=== PATIENT | female | born 1995 | race Caucasian/White ===

== ENCOUNTER → 2019-02-16 | Outpatient (CLI) | payer OTHER ==
--- NOTE | 2019-02-16 15:31 | US ---
EXAMINATION TYPE: Transabdominal DATE OF EXAM: 02/16/2019 3:07 PM COMPARISON: NONE CLINICAL HISTORY: Z36 confirm dates. confirm dates EXAM PERFORMED: Transabdominal (TA) EXAM MEASUREMENTS: GESTATIONAL AGE / DATING Physician Established: (7 weeks/6 days) EDC: 09/29/2019 Dates by LMP: (7 weeks/6 days) EDC: 09/29/2019 Dates by First Scan: No previous this is first scan Dates by Current Scan for: (7 weeks/4 days) EDC: 10/01/2019 MATERNAL ANATOMY Uterus: 8.4 x 6.2 x 7.1 cm Right Ovary: 3.6 x 1.5 x 1.9 cm Left Ovary: 3.3 x 1.7 x 2.8 cm Post CDS / Adnexa: wnl Presence of free fluid: no Presence of corpus luteal cyst: no Presence of subchorionic bleed: no GESTATION / SURVEY CRL: 1.3 cm (7 weeks/4 days) Yolk Sac (normal less than 6mm): 2mm Heart Rate: 151 bpm Rhythm: Normal IUP: Viable IUP Beta HcG (if available): Not available at this time Single live intrauterine gestation is confirmed as gestational sac, yolk sac, and pole are pres ent. No free fluid in pelvic cul-de-sac. Both ovaries are seen. No suspicious extraovarian adnexal mass. IMPRESSION: Single live intrauterine gestation is confirmed, mean crown-rump length is 1.3 cm corresp onding to 7 week 4 day old fetus
[2019-02-16 16:12] LABS: African American GFR (CKD) >90 (>60 ml/min/1.73 sqM); Glucose 100 mg/dL (74-99); HCT 33.9 % (34.0-46.0); HGB 11.7 gm/dL (11.4-16.0); MCH 32.5 pg (25.0-35.0); MCHC 34.5 g/dL (31.0-37.0); MCV 94.1 fL (80.0-100.0); Mean Platelet Volume 7.3; Platelet Count 196 k/uL (150-450); RDW 12.3 % (11.5-15.5); WBC 8.1 k/uL (3.8-10.6)
[2019-02-16 23:45] LABS: Hepatitis B Surface Antigen Non-Reactive (Non-Reactive)
== END | disposition home or self-care (01) ==
LOC: RADUSWWP 14:47 → MERGE 15:00
PROVIDERS: ATTEND Obstetrics & Gynecology
DX: Z36.9 Encounter for antenatal screening, unspecified (principal); Z34.81 Encounter for supervision of other normal pregnancy, first trimester
CPT/HCPCS: 36415; 76801; 82565; 82947; 85027; 86762; 86780; 86850; 86900; 86901; 87340

== ENCOUNTER 2019-04-07 13:26 | Emergency (ER) | payer OTHER ==
[2019-04-07 13:50] VITALS: RESP 18
[2019-04-07 14:47] LABS: Basophils % (A) 0 %; Eosinophils # (A) 0.1 k/uL (0-0.7); Eosinophils % (A) 1 %; HCT 38.4 % (34.0-46.0); Lymphocytes # (A) 1.5 k/uL (1.0-4.8); Lymphocytes % (A) 13 %; MCH 31.4 pg (25.0-35.0); MCHC 33.8 g/dL (31.0-37.0); MCV 92.8 fL (80.0-100.0); Mean Platelet Volume 9.1; Monocytes # (A) 0.4 k/uL (0-1.0); Monocytes % (A) 4 %; Neutrophils # (A) 9.5 k/uL (1.3-7.7); Neutrophils % (A) 82 %; Platelet Count 198 k/uL (150-450); RBC 4.14 m/uL (3.80-5.40); RDW 12.8 % (11.5-15.5); WBC 11.7 k/uL (3.8-10.6)
--- NOTE | 2019-04-07 14:53 | ED ---
Female Urogenital HPI - General Chief complaint: Urogenital Stated complaint: 15 wks preg, no heart beat on us Time Seen by Provider: 04/07/19 13:53 Source: patient, RN notes reviewed, old records reviewed Mode of arrival: ambulatory Limitations: no limitations - History of Present Illness Initial comments: This Patient is a 23-year-old female, female. She states she is 15 weeks . She follows up with Dr. Ventura. At this time Patient states that she's had an ultrasound today did identify the baby's gender. Patient reports at that time the ultrasound showed no viable heart rate. She states she has not felt the baby move in the past 2 days. She states that she has had no vaginal bleeding or fluid loss. She does report some minor pelvic cramping. - Related Data Home Medications Medication Instructions Recorded Confirmed Ciprofloxacin HCl [Cipro] 500 mg PO Q12HR 08/16/14 08/16/14 Nkzxoddi-Qxwiebhrt-Ud Otic 4 drops RIGHT EAR QID 08/16/14 08/16/14 [Cortisporin Otic Soln] Pnv No.95/Ferrous Fum/Folic AC 1 each PO DAILY 01/05/18 01/05/18 [ Multivitamin Tablet] Allergies Allergy/AdvReac Type Severity Reaction Status Date / Time No Known Allergies Allergy Verified 04/07/19 13:50 Review of Systems ROS Statement: Those systems with pertinent positive or pertinent negative responses have been documented in the HPI. ROS Other: All systems not noted in ROS Statement are negative. Past Medical History Past Medical History: No Reported History History of Any Multi-Drug Resistant Organisms: None Reported Past Surgical History: No Surgical Hx Reported Additional Past Surgical History / Comment(s): [place] Teeth Extraction Past Anesthesia/Blood Transfusion Reactions: No Reported Reaction Past Psychological History: No Psychological Hx Reported Smoking Status: Never smoker Past Alcohol Use History: None Reported Past Drug Use History: None Reported - Past Family History Mother Family Medical History: Thyroid Disorder Additional Family Medical History / Comment(s): Hypothyroid Father Family Medical History: Diabetes Mellitus Additional Family Medical History / Comment(s): Type 1 Diabetes General Exam - General Exam Comments Initial Comments: 23-year-old female. Alert and oriented 3. Limitations: no limitations General appearance: alert, in no apparent distress Head exam: Present: atraumatic, normocephalic, normal inspection Eye exam: Present: normal appearance, PERRL, EOMI. Absent: scleral icterus, conjunctival injection, periorbital swelling ENT exam: Present: normal exam, mucous membranes moist Neck exam: Present: normal inspection Respiratory exam: Present: normal lung sounds bilaterally. Absent: respiratory distress, wheezes, rales, rhonchi, stridor Cardiovascular Exam: Present: regular rate, normal rhythm, normal heart sounds. Absent: systolic murmur, diastolic murmur, rubs, gallop, clicks GI/Abdominal exam: Present: soft, normal bowel sounds. Absent: distended, t enderness, guarding, rebound, rigid External exam: Present: other (patient declined pelvic exam ) Extremities exam: Present: normal inspection, full ROM, normal capillary refill. Absent: tenderness, pedal edema, joint swelling, calf tenderness Back exam: Present: normal inspection Neurological exam: Present: alert, oriented X3, CN II-XII intact Psychiatric exam: Present: normal affect, normal mood Skin exam: Present: warm, dry, intact, normal color. Absent: rash Course Vital Signs 04/07/19 13:47 Temperature 98.4 F Pulse Rate 107 H Respiratory 18 Rate Blood Pressure 115/79 O2 Sat by Pulse 99 Oximetry Medical Decision Making - Medical Decision Making 23-year-old female, . Approximately 15 weeks based off of last menstrual. She presents today after having an abnormal outpatient ultrasound for a general reveal. She is looking here after there is no heart tones detected. Repeat ultrasound today shows no viable intrauterine , no heart rate detected. growth and soup sounds at 13 weeks and 2 days. There is concern for hydroxy talus. She denies any vaginal bleeding or discharge. Vital signs are stable and afebrile. Blood work was unremarkable. She is Rh+. I discussed the case with Dr. Ventura patient's SOFTWARE DEVELOPMENT COORDINATOR. Recommended the Patient can follow-up with her in the office at 9 AM on Tuesday morning to schedule an induction for delivery. I discussed the Patient can return if there is any bleeding or further pain. Discussed Motrin or Tylenol for pain. - Lab Data Result diagrams: 04/07/19 14:35 04/07/19 14:35 Lab Results 04/07/19 04/07/19 04/07/19 Range/Units 14:35 14:35 14:35 WBC 11.7 H (3.8-10.6) k/uL RBC 4.14 (3.80-5.40) m/uL Hgb 13.0 (11.4-16.0) gm/dL Hct 38.4 (34.0-46.0) % MCV 92.8 (80.0-100.0) fL MCH 31.4 (25.0-35.0) pg MCHC 33.8 (31.0-37.0) g/dL RDW 12.8 (11.5-15.5) % Plt Count 198 (150-450) k/uL Neutrophils % 82 % Lymphocytes % 13 % Monocytes % 4 % Eosinophils % 1 % Basophils % 0 % Neutrophils # 9.5 H (1.3-7.7) k/uL Lymphocytes # 1.5 (1.0-4.8) k/uL Monocytes # 0.4 (0-1.0) k/uL Eosinophils # 0.1 (0-0.7) k/uL Basophils # 0.0 (0-0.2) k/uL PT (9.0-12.0) sec INR (<1.2) Sodium 138 (137-145) mmol/L Potassium 3.7 (3.5-5.1) mmol/L Chloride 104 (98-107) mmol/L Carbon Dioxide 20 L (22-30) mmol/L Anion Gap 14 mmol/L BUN 12 (7-17) mg/dL Creatinine 0.55 (0.52-1.04) mg/dL Est GFR (CKD-EPI)AfAm >90 (>60 ml/min/1.73 sqM) Est GFR (CKD-EPI)NonAf >90 (>60 ml/min/1.73 sqM) Glucose 85 (74-99) mg/dL Calcium 9.8 (8.4-10.2) mg/dL Total Bilirubin 1.5 H (0.2-1.3) mg/dL AST 25 (14-36) U/L ALT 14 (4-34) U/L Alkaline Phosphatase 51 (38-126) U/L Total Protein 8.0 (6.3-8.2) g/dL Albumin 4.8 (3.5-5.0) g/dL Blood Type A Positive Blood Type Recheck A Pos Bld Type Recheck Status No 04/07/19 Range/Units 14:35 WBC (3.8-10.6) k/uL RBC (3.80-5.40) m/uL Hgb (11.4-16.0) gm/dL Hct (34.0-46.0) % MCV (80.0-100.0) fL MCH (25.0-35.0) pg MCHC (31.0-37.0) g/dL RDW (11.5-15.5) % Plt Count (150-450) k/uL Neutrophils % % Lymphocytes % % Monocytes % % Eosinophils % % Basophils % % Neutrophils # (1.3-7.7) k/uL Lymphocytes # (1.0-4.8) k/uL Monocytes # (0-1.0) k/uL Eosinophils # (0-0.7) k/uL Basophils # (0-0.2) k/uL PT 9.9 (9.0-12.0) sec INR 0.9 (<1.2) Sodium (137-145) mmol/L Potassium (3.5-5.1) mmol/L Chloride (98-107) mmol/L Carbon Dioxide (22-30) mmol/L Anion Gap mmol/L BUN (7-17) mg/dL Creatinine (0.52-1.04) mg/dL Est GFR (CKD-EPI)AfAm (>60 ml/min/1.73 sqM) Est GFR (CKD-EPI)NonAf (>60 ml/min/1.73 sqM) Glucose (74-99) mg/dL Calcium (8.4-10.2) mg/dL Total Bilirubin (0.2-1.3) mg/dL AST (14-36) U/L ALT (4-34) U/L Alkaline Phosphatase (38-126) U/L Total Protein (6.3-8.2) g/dL Albumin (3.5-5.0) g/dL Blood Type Blood Type Recheck Bld Type Recheck Status - Radiology Data Radiology results: report reviewed There is intrauterine demise at approximately 13 weeks and 2 days according to femur length. No heart rate was detected. Disposition Clinical Impression: Non-viable Disposition: HOME SELF-CARE Condition: Good Instructions (If sedation given, give patient instructions): Miscarriage (ED) Additional Instructions: Is follow-up with Dr. Ventura on Tuesday morning at 9 AM. There is any bleeding or significant pain return to the ER. Patient should have pelvic rest. No intercourse or heavy lifting. Rest, remain hydrated. Is patient prescribed a controlled substance at d/c from ED?: No Referrals: None,Stated [Primary Care Provider] - 1-2 days Zena Ventura DO [Doctor of Osteopathic Medicine] - 1-2 days Time of Disposition: 16:58
[2019-04-07 14:55] LABS: INR 0.9 (<1.2); Prothrombin Time 9.9 sec (9.0-12.0)
[2019-04-07 14:58] LABS: ALT 14 U/L (4-34); AST 25 U/L (14-36); African American GFR (CKD) >90 (>60 ml/min/1.73 sqM); Albumin 4.8 g/dL (3.5-5.0); Alkaline Phosphatase 51 U/L (38-126); Anion Gap 14 mmol/L; Blood Urea Nitrogen 12 mg/dL (7-17); Calcium 9.8 mg/dL (8.4-10.2); Carbon Dioxide 20 mmol/L (22-30); Chloride 104 mmol/L (98-107); Glucose 85 mg/dL (74-99); Non-African American GFR(CKD) >90 (>60 ml/min/1.73 sqM); Potassium 3.7 mmol/L (3.5-5.1); Sodium 138 mmol/L (137-145); Total Bilirubin 1.5 mg/dL (0.2-1.3)
--- NOTE | 2019-04-07 16:12 | US ---
EXAMINATION TYPE: US OB >= 14 wk fetus DATE OF EXAM: 04/07/2019 COMPARISON: US CLINICAL HISTORY: no heart tones outpatient us, pain. EC patient with pelvic pain today and abs ent heart tones today on outpatient gender reveal US per patient. TECHNIQUE: Transabdominal (TA) GESTATIONAL AGE / DATING Physician Established: (15 weeks/0 days) EDC: 09/29/2019 Dates by LMP: (15 weeks/0 days) EDC: 09/29/2019 Dates by First Scan: (14 weeks/5 days) EDC: 10/01/2019 Dates by Current Scan: non viable IUP (Beta HCG (if available): NA SURVEY IUP: single PLACENTA: posterior PREVIA: No Previa LEN: 10.2 cm Normal CERVICAL LENGTH (transabdominal: norm > 3.0cm): 3.03 cm BIOMETRY PRESENTATION: cephalic LIE: Transverse with head maternal right BPD: 2.5 cm (abnormal multicystic appearance to posterior head and neck and fluid noted in head and a bdominal cavities) 14 weeks / 2 days HC: 8.1 cm 13 weeks / 4 days AC: 9.8 cm 15 weeks / 6 days FL: 1.1 cm 13 weeks / 2 days ESTIMATED WEIGHT IN GRAMS: 98.3 grams ESTIMATED WEIGHT IN LBS/OZ: 0 lbs. 3 oz. WEIGHT PERCENTAGE BASED ON ESTABLISHED DATES: 10.5% HC/AC: 0.83 Abnormal FL/AC: 11.45 HEART RATE: none detected Nonviable IUP with possible cystic hygroma and hydrops. IMPRESSION: There is intrauterine demise at approximately 13 weeks and 2 days gestation according to the fe mur length.
[2019-04-07 17:14] VITALS: BP 125/82; PULSE 86; TEMP 98.9
== END 2019-04-07 17:12 | disposition home or self-care (01) ==
LOC: EC 13:26
DX: O36.80X0 Pregnancy with inconclusive fetal viability, not applicable or unspecified (principal); Z3A.15 15 weeks gestation of pregnancy
CPT/HCPCS: 36415; 76805; 80053; 81025; 85025; 85610; 86900; 86901; 99284

== ENCOUNTER 2019-04-10 05:54 | Inpatient (IN) | payer OTHER ==
[2019-04-10] MEDS ORDERED: ONDANSETRON 4 MG/2 ML VIAL IVP PRN (06:10)
[2019-04-10] MEDS ORDERED: ACETAMINOPHEN TAB 325 MG TAB PO PRN (06:10)
[2019-04-10] MEDS ORDERED: DIPHENOX-ATROP 2.5-0.025 MG 1 EACH TAB PO PRN (06:10)
[2019-04-10] MEDS ORDERED: LACTATED RINGERS 1,000 ML IV SCH (06:15)
[2019-04-10 06:49] LABS: Basophils % (A) 0 %; Eosinophils # (A) 0.1 k/uL (0-0.7); Eosinophils % (A) 1 %; HCT 35.7 % (34.0-46.0); HGB 11.9 gm/dL (11.4-16.0); Lymphocytes # (A) 1.3 k/uL (1.0-4.8); Lymphocytes % (A) 17 %; MCH 31.4 pg (25.0-35.0); MCHC 33.3 g/dL (31.0-37.0); MCV 94.5 fL (80.0-100.0); Mean Platelet Volume 8.8; Monocytes # (A) 0.3 k/uL (0-1.0); Monocytes % (A) 4 %; Neutrophils # (A) 5.9 k/uL (1.3-7.7); Neutrophils % (A) 76 %; Platelet Count 166 k/uL (150-450); RBC 3.78 m/uL (3.80-5.40); RDW 12.9 % (11.5-15.5); WBC 7.8 k/uL (3.8-10.6)
[2019-04-10] MEDS: CARBOPROST TROMETHAMINE 250 MCG/ML 1 ML AMP IM SCH ×2 (08:02→10:49)
[2019-04-10] MEDS ORDERED: KETOROLAC 30 MG/ML 1 ML VIAL IVP SCH (09:00)
[2019-04-10] MEDS ORDERED: BUTORPHANOL 1 MG/ML 1 ML VIAL IV PRN (12:16)
[2019-04-10] MEDS ORDERED: SIMETHICONE 80 MG CHEWABLE PO PRN (12:36)
[2019-04-10] MEDS ORDERED: HYDROCORTISONE 2.5% RECTAL CREAM 30 GM TUBE RECTAL PRN (12:36)
[2019-04-10] MEDS ORDERED: IBUPROFEN 600 MG TAB PO PRN (12:36)
[2019-04-10] MEDS ORDERED: ZOLPIDEM 5 MG TAB PO PRN (12:36)
[2019-04-10] MEDS ORDERED: diphenhydrAMINE 25 MG CAP PO PRN (12:36)
[2019-04-10] MEDS ORDERED: BENZOCAINE/MENTHOL SPRAY 1 GM/SPRAY AEROSOL TOPICAL PRN (12:36)
[2019-04-10] MEDS ORDERED: WITCH HAZEL 1 EACH MED..PAD TOPICAL PRN (12:36)
[2019-04-10] MEDS ORDERED: diphenhydrAMINE 50 MG CAP PO PRN (12:36)
[2019-04-10] MEDS ORDERED: diphenhydrAMINE 50 MG/ML 1 ML VIAL IVP PRN ×2 (12:36)
--- NOTE | 2019-04-10 12:41 | P.HPOB ---
History of Present Illness H&P Date: 04/10/19 Chief Complaint: demise, 13weeks 5 days 23-year-old presents for induction of labor due to demise at 13 weeks and 5 days. This patient went to another outpatient facility for an ultrasound and was told the baby did not have a heart rate. She came here for ultrasound which showed a cystic hygroma, hydrops, and no heart rate. She was in my office yesterday afternoon for laminaria insertion and presents today for induction of labor. Review of Systems All systems: negative Constitutional: Denies chills, Denies fever Eyes: denies blurred vision, denies pain Ears, nose, mouth and throat: Denies headache, Denies sore throat Cardiovascular: Denies chest pain, Denies shortness of breath Respiratory: Denies cough Gastrointestinal: Denies abdominal pain, Denies diarrhea, Denies nausea, Denies vomiting Genitourinary: Denies dysuria, Denies hematuria Musculoskeletal: Denies myalgias Integumentary: Denies pruritus, Denies rash Neurological: Denies numbness, Denies weakness Psychiatric: Denies anxiety, Denies depression Endocrine: Denies fatigue, Denies weight change Past Medical History Past Medical History: No Reported History Additional Past Medical History / Comment(s): Obstetric history: She's had 2 previous vaginal deliveries History of Any Multi-Drug Resistant Organisms: None Reported Past Surgical History: No Surgical Hx Reported Additional Past Surgical History / Comment(s): [place] Teeth Extraction Past Anesthesia/Blood Transfusion Reactions: No Reported Reaction Past Psychological History: No Psychological Hx Reported Smoking Status: Never smoker Past Alcohol Use History: None Reported Past Drug Use History: None Reported - Past Family History Mother Family Medical History: Thyroid Disorder Additional Family Medical History / Comment(s): Hypothyroid Father Family Medical History: Diabetes Mellitus Additional Family Medical History / Comment(s): Type 1 Diabetes Medications and Allergies Home Medications Medication Instructions Recorded Confirmed Type Pnv No.95/Ferrous Fum/Folic AC 1 tab PO DAILY 01/05/18 04/10/19 History [ Multivitamin Tablet] Allergies Allergy/AdvReac Type Severity Reaction Status Date / Time No Known Allergies Allergy Verified 04/10/19 06:07 Exam Osteopathic Statement: *. No significant issues noted on an osteopathic structural exam other than those noted in the History and Physical/Consult. Vital Signs Temp Pulse Resp BP Pulse Ox 04/10/19 06:05 98.6 F 102 H 20 117/75 100 Intake and Output 04/09/19 04/10/19 04/10/19 22:59 06:59 14:59 Other: # Voids 1 Weight 51.256 kg Heart: Regular rate and rhythm Lungs: Clear to auscultation bilaterally Abdomen: Soft, nontender Extremities: Negative Homans sign Bimanual exam: The laminaria were removed and the patient was 1 cm, thick, -3 station. Results Result Diagrams: 04/10/19 06:30 Abnormal Lab Results - Last 24 Hours (Table) 04/10/19 Range/Units 06:30 RBC 3.78 L (3.80-5.40) m/uL Assessment and Plan (1) before 20 weeks with retention of fetus Current Visit: Yes Status: Acute Code(s): O02.1 - MISSED SNOMED Code(s): 599488547 Plan: Induction of labor with Hemabate. All risks and benefits alternatives were discussed with the patient.
--- NOTE | 2019-04-10 12:43 | P.PROBDLV ---
Vaginal Delivery Note - . Vaginal Delivery Note: 23-year-old presented for induction of labor due to demise at 13 weeks and 5 days. Laminaria had been inserted and the cervix the day prior so when she presented to the hospital she was 1 cm dilated, thick, -3 station. She was preloaded with Tylenol, Lomotil, Zofran. She was then given a shot of Hemabate. Within an hour of giving the Hemabate the patient did deliver a nonviable fetus. The placenta remained in the uterus. About 4 hours later, she started with some heavy bleeding and pushed the placenta right out. She is currently stable, estimated blood loss 350 mL.
[2019-04-10 13:44] VITALS: RESP 16
[2019-04-10 15:40] VITALS: BP 103/64; PULSE 104; TEMP 98
[2019-04-10] MEDS ORDERED: SENNOSIDES-DOCUSATE SODIUM 1 EACH TAB PO SCH (20:00)
== END 2019-04-10 15:35 | disposition home or self-care (01) | DRG 807 ==
LOC: 4FBP 05:54
PROVIDERS: ADMIT Obstetrics & Gynecology; ATTEND Obstetrics & Gynecology
PROC: 10E0XZZ Delivery of Products of Conception, External Approach (ICD-10-PCS; principal; 2019-04-10)
PROC: 3E0P7VZ Introduction of Hormone into Female Reproductive, Via Natural or Artificial Opening (ICD-10-PCS; 2019-04-10)
DX: O36.21 Maternal care for hydrops fetalis, first trimester (principal); Z37.1 Single stillbirth; O35.8XX0 Maternal care for other (suspected) fetal abnormality and damage, not applicable or unspecified; Z3A.13 13 weeks gestation of pregnancy; D18.1 Lymphangioma, any site; Z79.899 Other long term (current) drug therapy; Z98.890 Other specified postprocedural states; Z83.49 Family history of other endocrine, nutritional and metabolic diseases; Z83.3 Family history of diabetes mellitus
CPT/HCPCS: 85025; 86850; 86900; 86901

== ENCOUNTER 2019-06-22 23:03 | Emergency (ER) | payer BC, OTHER ==
[2019-06-22 23:15] VITALS: RESP 16
[2019-06-22] MEDS ORDERED: SODIUM CHLORIDE 0.9% 1,000 ML IV ONE (23:33)
[2019-06-22] MEDS ORDERED: KETOROLAC 30 MG/ML 1 ML VIAL IVP STA (23:33)
[2019-06-22] MEDS ORDERED: MORPHINE SULFATE 2 MG/ML SYRINGE IVP STA (23:33)
[2019-06-23 00:08] LABS: Basophils % (A) 1 %; Eosinophils # (A) 0.1 k/uL (0-0.7); Eosinophils % (A) 1 %; HCT 35.6 % (34.0-46.0); HGB 11.2 gm/dL (11.4-16.0); Lymphocytes # (A) 1.7 k/uL (1.0-4.8); Lymphocytes % (A) 21 %; MCH 27.7 pg (25.0-35.0); MCHC 31.6 g/dL (31.0-37.0); MCV 87.7 fL (80.0-100.0); Mean Platelet Volume 8.9; Monocytes # (A) 0.6 k/uL (0-1.0); Monocytes % (A) 7 %; Neutrophils # (A) 5.6 k/uL (1.3-7.7); Neutrophils % (A) 69 %; Platelet Count 237 k/uL (150-450); RBC 4.05 m/uL (3.80-5.40); RDW 13.6 % (11.5-15.5); WBC 8.2 k/uL (3.8-10.6)
[2019-06-23 00:17] LABS: Partial Thromboplastin Time 22.6 sec (22.0-30.0); Prothrombin Time 10.3 sec (9.0-12.0)
[2019-06-23 00:18] LABS: ALT 14 U/L (4-34); AST 23 U/L (14-36); African American GFR (CKD) >90 (>60 ml/min/1.73 sqM); Albumin 4.7 g/dL (3.5-5.0); Alkaline Phosphatase 42 U/L (38-126); Anion Gap 10 mmol/L; Blood Urea Nitrogen 13 mg/dL (7-17); Calcium 9.6 mg/dL (8.4-10.2); Carbon Dioxide 27 mmol/L (22-30); Chloride 101 mmol/L (98-107); Glucose 106 mg/dL (74-99); Non-African American GFR(CKD) >90 (>60 ml/min/1.73 sqM); Potassium 3.8 mmol/L (3.5-5.1); Sodium 138 mmol/L (137-145); Total Bilirubin 0.6 mg/dL (0.2-1.3); Total Protein 7.8 g/dL (6.3-8.2)
[2019-06-23 00:35] LABS: HCG,Quantitative Serum <2.4 mIU/mL
--- NOTE | 2019-06-23 00:36 | US ---
EXAMINATION TYPE: US transvaginal DATE OF EXAM: 06/23/2019 COMPARISON: Previous OB only CLINICAL HISTORY: Vaginal bleeding/pain; Spont 10 weeks ago. Pt states vaginal bleeding x 10 weeks since having miscarriage, bleeding recently heavier with pain TECHNIQUE: Transvaginal (TV). Transvaginal sonographic images of the pelvis were acquired. EXAM MEASUREMENTS: Uterus: 9.3 x 4.4 x 5.5 cm Endometrial Stripe: 0.7 cm Right Ovary: 3.4 x 2.5 x 3.1 cm Left Ovary: 3.0 x 2.2 x 2.6 cm 1. Uterus: Anteverted Heterogeneous 2. Endometrium: Slightly heterogeneous, not abnormally thickened 3. Right Ovary: Cyst= 2.7 x 2.0 x 2.3 cm 4. Left Ovary: wnl Spectral, color and waveform doppler imaging shows good arterial and venous flow within the ovaries ; there is no evidence for ovarian torsion. 5. Bilateral Adnexa: wnl 6. Posterior cul-de-sac: wnl IMPRESSION: There is 2.5 cm cyst on the right ovary. Normal uterus. No evidence of ovarian torsion. N o free fluid.
--- NOTE | 2019-06-23 00:46 | ED ---
General Adult HPI - General Chief complaint: Vaginal Bleeding Stated complaint: Vaginal Bleeding Time Seen by Provider: 06/22/19 23:18 Source: patient Mode of arrival: ambulatory Limitations: no limitations - History of Present Illness Initial comments: 23-year-old female patient presents to the emergency department today for evaluation of heavy vaginal bleeding and suprapubic cramping. Patient states that she had a missed approximately 10 weeks ago and had to be induced by Dr. Ventura. Patient states today did deliver the fetus and placenta intact. States that she has had some mild bleeding since the procedure however approximately one hour ago she developed heavier bleeding, passage of large clots, and increased pain to the lower abdomen. Denies any back pain. Denies any dizziness or weakness. Denies any dysuria, urinary urgency, urinary frequency. Patient states she has not been sexually active since the miscarriage. Patient denies any recent rash, fever, chills, shortness breath, chest pain, nausea, vomiting, diarrhea, constipation, numbness, tingling, headache, visual changes, or any other complaints. - Related Data Home Medications Medication Instructions Recorded Confirmed Pnv No.95/Ferrous Fum/Folic AC 1 tab PO DAILY 01/05/18 04/10/19 [ Multivitamin Tablet] Previous Rx's Medication Instructions Recorded Ibuprofen [Motrin] 600 mg PO Q6HR PRN #30 tab 04/10/19 Allergies Allergy/AdvReac Type Severity Reaction Status Date / Time No Known Allergies Allergy Verified 06/22/19 23:15 Review of Systems ROS Statement: Those systems with pertinent positive or pertinent negative responses have been documented in the HPI. ROS Other: All systems not noted in ROS Statement are negative. Past Medical History Past Medical History: No Reported History Additional Past Medical History / Comment(s): Obstetric history: She's had 2 previous vaginal deliveries History of Any Multi-Drug Resistant Organisms: None Reported Past Surgical History: No Surgical Hx Reported Additional Past Surgical History / Comment(s): [place] Teeth Extraction Past Anesthesia/Blood Transfusion Reactions: No Reported Reaction Past Psychological History: No Psychological Hx Reported Smoking Status: Never smoker Past Alcohol Use History: None Reported Past Drug Use History: None Reported - Past Family History Mother Family Medical History: Thyroid Disorder Additional Family Medical History / Comment(s): Hypothyroid Father Family Medical History: Diabetes Mellitus Additional Family Medical History / Comment(s): Type 1 Diabetes General Exam Limitations: no limitations General appearance: alert, in no apparent distress, other (This is a well- developed, well-nourished adult female patient in no acute distress. Vital signs upon presentation are temperature 98.1F, pulse 100, respirations 16, blood pressure 147/80, pulse ox 100% on room air.) Eye exam: Present: normal appearance, PERRL, EOMI. Absent: scleral icterus, conjunctival injection, periorbital swelling ENT exam: Present: normal exam, normal oropharynx, mucous membranes moist Respiratory exam: Present: normal lung sounds bilaterally. Absent: respiratory distress, wheezes, rales, rhonchi, stridor Cardiovascular Exam: Present: regular rate, normal rhythm, normal heart sounds. Absent: systolic murmur, diastolic murmur, rubs, gallop, clicks GI/Abdominal exam: Present: soft, tenderness (mild suprapubic), normal bowel sounds. Absent: distended, guarding, rebound, rigid External exam: Present: normal external exam Speculum exam: Present: vaginal bleeding (Moderate vaginal bleeding, one clot was removed from the vaginal vault, approximately 2 cm x 4 cm. Cervix is closed.). Absent: tissue By manual exam: Present: normal by manual exam Neurological exam: Present: alert, oriented X3, CN II-XII intact Psychiatric exam: Present: normal affect, normal mood Skin exam: Present: warm, dry, intact, normal color. Absent: rash Course Vital Signs 06/22/19 06/23/19 23:11 00:51 Temperature 98.1 F 98 F Pulse Rate 100 95 Respiratory 16 16 Rate Blood Pressure 147/80 130/79 O2 Sat by Pulse 100 100 Oximetry Medical Decision Making - Medical Decision Making 23-year-old female patient presents to the emergency department today for evaluation of stable. Pain and heavy vaginal bleeding. Physical examination reveals a mildly tender suprapubic region. Vaginal exam reveals one large blood clot with moderate dark red bleeding. Cervix is closed. Labs reviewed and are unremarkable. HCG is negative. Ultrasound was obtained and shows a normal uterus with a small right ovarian cyst. I did discuss findings and results with the patient. We did discuss that this could possibly be her first period since the miscarriage. She'll be discharged pop with STRAIGHTENING PRESS OPERATOR HELPER Dr. Ventura for recheck as soon as possible. She is instructed to follow-up with her primary care physician for recheck in 1-2 days. Return parameters were discussed in detail. She verbalizes understanding and agrees with this plan. - Lab Data Result diagrams: 06/22/19 23:56 06/22/19 23:56 Lab Results 06/22/19 06/22/19 06/22/19 Range/Units 23:56 23:56 23:56 WBC 8.2 (3.8-10.6) k/uL RBC 4.05 (3.80-5.40) m/uL Hgb 11.2 L (11.4-16.0) gm/dL Hct 35.6 (34.0-46.0) % MCV 87.7 (80.0-100.0) fL MCH 27.7 (25.0-35.0) pg MCHC 31.6 (31.0-37.0) g/dL RDW 13.6 (11.5-15.5) % Plt Count 237 (150-450) k/uL Neutrophils % 69 % Lymphocytes % 21 % Monocytes % 7 % Eosinophils % 1 % Basophils % 1 % Neutrophils # 5.6 (1.3-7.7) k/uL Lymphocytes # 1.7 (1.0-4.8) k/uL Monocytes # 0.6 (0-1.0) k/uL Eosinophils # 0.1 (0-0.7) k/uL Basophils # 0.0 (0-0.2) k/uL PT 10.3 (9.0-12.0) sec INR 1.0 (<1.2) APTT 22.6 (22.0-30.0) sec Sodium 138 (137-145) mmol/L Potassium 3.8 (3.5-5.1) mmol/L Chloride 101 (98-107) mmol/L Carbon Dioxide 27 (22-30) mmol/L Anion Gap 10 mmol/L BUN 13 (7-17) mg/dL Creatinine 0.85 (0.52-1.04) mg/dL Est GFR (CKD-EPI)AfAm >90 (>60 ml/min/1.73 sqM) Est GFR (CKD-EPI)NonAf >90 (>60 ml/min/1.73 sqM) Glucose 106 H (74-99) mg/dL Calcium 9.6 (8.4-10.2) mg/dL Total Bilirubin 0.6 (0.2-1.3) mg/dL AST 23 (14-36) U/L ALT 14 (4-34) U/L Alkaline Phosphatase 42 (38-126) U/L Total Protein 7.8 (6.3-8.2) g/dL Albumin 4.7 (3.5-5.0) g/dL HCG, Quant <2.4 mIU/mL - Radiology Data Radiology results: report reviewed Ultrasound of the pelvis is obtained. Report was reviewed in its entirety. Impression by Dr. Foley shows 2.5cm cyst on the right ovary. Normal uterus. No evidence of ovarian torsion. No free fluid. Disposition Clinical Impression: Pelvic pain, Dysfunctional uterine bleeding Disposition: HOME SELF-CARE Condition: Good Instructions (If sedation given, give patient instructions): Dysfunctional Uterine Bleeding (ED), Pelvic Pain in Women (ED) Additional Instructions: Increase fluids. Rest. Take Tylenol Motrin for pain control. Follow-up with your STRAIGHTENING PRESS OPERATOR HELPER for recheck as soon as possible. Follow up to primary care physician for recheck in 1-2 days. Return to the emergency department immediately for any new, worsening, or concerning symptoms. Is patient prescribed a controlled substance at d/c from ED?: No Referrals: Zena Ventura DO [Doctor of Osteopathic Medicine] - 1-2 days Time of Disposition: 00:46
[2019-06-23 00:52] VITALS: BP 130/79; PULSE 95; TEMP 98
== END 2019-06-23 00:51 | disposition home or self-care (01) ==
LOC: EC 23:03
DX: N93.8 Other specified abnormal uterine and vaginal bleeding (principal); R10.2 Pelvic and perineal pain; N83.201 Unspecified ovarian cyst, right side; Z32.02 Encounter for pregnancy test, result negative
CPT/HCPCS: 36415; 80053; 85025; 85610; 85730; 84702; 93975; 76830; 99284; 96374; 96375; 96361; J1885; J2270

== ENCOUNTER 2022-08-22 11:12 | Outpatient (CLI) | payer OTHER ==
[2022-08-22 13:03] VITALS: BP 121/81; PULSE 87; RESP 16; TEMP 99.2
--- NOTE | 2022-09-07 14:05 | P.MSEPDOC ---
Presenting Problems - Arrival Data Date of Arrival on Unit: 08/22/22 Time of Arrival on Unit: 11:12 Mode of Transport: Ambulatory - Complaint OB-Reason for Admission/Chief Complaint: Possible Onset of Labor Medical History - Information : 3 Para: 2 Number of Living Children: 2 - Gestational Age Gestational Age by KAMILA (wks/days): 38 Weeks and 1 Days - History Complications: GBS+ Review of Systems - Review of Systems Constitutional: No problems Breast: No problems ENT: No problems Cardiovascular: No problems Respiratory: No problems Gastrointestinal: No problems Genitourinary: No problems Musculoskeletal: No problems Neurological: No problems Skin: No problems Vital Signs - Temperature Temperature: 99.2 F Temperature Source: Temporal Artery Scan - Pulse Right Sitting Apical Pulse Rate: 87 Pulse Assessment Method: Automatic Cuff - Respirations Respiratory Rate: 16 Oxygen Delivery Method: Room Air O2 Sat by Pulse Oximetry: 100 - Blood Pressure Right Arm Sitting Blood Pressure: 121/81 Blood Pressure Mean: 94 Blood Pressure Source: Automatic Cuff Medical Screen Scoring - Cervical Exam Dilation (cm): 2 Effacement (%): 60 Station: -3 Membranes: Intact - Uterine Contractions Frequency From (mins): 2 Frequency To (mins): 3 Duration From (seconds): 20 Duration To (seconds): 60 Intensity: Mild Resting: Soft to palpation - Assessment - Baby A Baseline FHR: 130 Heart Rate - NICHD Category: Category I (Normal) NST: Reactive Physician Notification - Physician Notified Physician Notified Date: 08/22/22 Physician Notified Time: 12:44 Physician: Shasha Osorio Maternal Triage Index - Maternal Triage Index Presenting for scheduled procedure w/no complaint: No - Stat/Priority 1 Stat Priority 1: No - Urgent/Priority 2 Urgent Priority 2: No - Prompt/Priority 3 Prompt Priority 3: No - Non-Urgent/Priority 4 Non-Urgent Priority 4: Yes Criteria Met for Priority 4: 38 weeks GA, contractions Disposition - Disposition OB Disposition: Discharge to home Discharge Date: 08/22/22 Discharge Time: 11:51 I agree with the RN Medical Screening Exam: Yes Physician's MSE Comment: I have neither seen nor examined the patient Case reviewed; plan agreed upon as documented in EMR&OBIX.: Yes Diagnosis: RELATED CONDITIONS, UNSPECIFIED, THIRD TRIMESTER
== END 2022-08-22 11:50 | disposition home or self-care (01) ==
LOC: FBPOP 11:12
PROVIDERS: ATTEND Obstetrics & Gynecology
DX: O26.893 Other specified pregnancy related conditions, third trimester (principal); O98.82 Other maternal infectious and parasitic diseases complicating childbirth; Z3A.38 38 weeks gestation of pregnancy; Z79.82 Long term (current) use of aspirin
CPT/HCPCS: 59025; G0463; 99213

== ENCOUNTER 2022-09-02 06:06 | Inpatient (IN) | payer BC, OTHER ==
[2022-09-02] MEDS ORDERED: CARBOPROST TROMETHAMINE 250 MCG/ML 1 ML AMP IM PRN (06:24)
[2022-09-02] MEDS ORDERED: PENICILLIN G POTASSIUM 5,000,000 UNIT in DEXTROSE 5% IN WATER 100 ML IVPB STA ×2 (06:24)
[2022-09-02] MEDS ORDERED: OXYTOCIN 10 UNIT/ML 1 ML VIAL IM PRN (06:24)
[2022-09-02] MEDS ORDERED: TRANEXAMIC ACID IN NACL,ISO-OS 1,000 MG in EMPTY BAG 1 BAG IV PRN (06:24)
[2022-09-02] MEDS ORDERED: miSOPROStoL 200 MCG TAB PO PRN (06:24)
[2022-09-02] MEDS ORDERED: METHYLERGONOVINE 0.2 MG/ML 1 ML AMP IM PRN (06:24)
[2022-09-02] MEDS ORDERED: TERBUTALINE 1 MG/ML VIAL SQ PRN (06:24)
[2022-09-02] MEDS ORDERED: LIDOCAINE 0.5% (PF) 5 MG/ML (50 ML SDV) SQ PRN (06:24)
[2022-09-02] MEDS ORDERED: LACTATED RINGERS 1,000 ML IV SCH (06:30)
[2022-09-02 06:35] LABS: Basophils % (A) 0 %; Eosinophils # (A) 0.1 k/uL (0-0.7); Eosinophils % (A) 1 %; HCT 31.6 % (34.0-46.0); HGB 10.2 gm/dL (11.4-16.0); Hypochromasia Slight; Lymphocytes # (A) 1.7 k/uL (1.0-4.8); Lymphocytes % (A) 19 %; MCH 29.4 pg (25.0-35.0); MCHC 32.4 g/dL (31.0-37.0); MCV 90.8 fL (80.0-100.0); Mean Platelet Volume 10.7; Monocytes # (A) 0.5 k/uL (0-1.0); Monocytes % (A) 6 %; Neutrophils # (A) 6.6 k/uL (1.3-7.7); Neutrophils % (A) 72 %; Platelet Count 177 k/uL (150-450); RBC 3.48 m/uL (3.80-5.40); RDW 13.5 % (11.5-15.5); WBC 9.3 k/uL (3.8-10.6)
[2022-09-02] MEDS: OXYTOCIN 30 UNITS/500 ML NS 30 UNIT in SALINE 1 500ML.BAG IV SCH ×2 (06:53→12:02)
--- NOTE | 2022-09-02 10:11 | P.HPOB ---
History of Present Illness H&P Date: 09/02/22 Chief Complaint: Here for elective induction of labor with favorable multiparous cervix This is a 27-year-old female 5 para 20-2 EDC 09/04/2022 at 39-5/7 weeks' gestation. Patient presents for induction of labor with favorable multiparous cervix. Fetus is been active throughout the . She denies fluid leakage or vaginal bleeding. Past medical history significant for anemia and kidney infections. Past surgical history is negative. Current medications vitamin daily, baby aspirin daily. ALLERGIES none known. Obstetric history normal spontaneous vaginal deliveries 2, both unremarkable with healthy male infants. Social history patient has never been a smoker, she denies alcohol or drug use, she is her Evin present and involved. history is significant for positive group B strep cultures, blood type A+, rubella status immune. VDRL testing, urine culture, hepatitis B surface antigen, HIV testing, gonorrhea and chlamydia cultures all negative. One-hour Glucola 90. On exam patient is 5 foot 6 inches, 147 pounds, blood pressure 125/86. The general physical exam is within normal limits. Cervix is 6-7 cm dilated, vertex presentation, 70-80% effaced, -2 station, vertex presentation. Artificial amniorrhexis reveals clear fluid. heart rate is consistent with reactive NST. Impression: 39-5/7 weeks intrauterine , here for induction of labor all signs reassuring, positive group B strep cultures noted. Plan: Penicillin G has artery been given. Oxytocin per hospital protocol. Analgesic options reviewed. Continue close maternal and surveillance. Anticipate normal spontaneous vaginal delivery. Review of Systems Constitutional: Reports as per HPI Past Medical History Past Medical History: No Reported History Additional Past Medical History / Comment(s): Obstetric history: She's had 2 previous vaginal deliveries History of Any Multi-Drug Resistant Organisms: None Reported Past Surgical History: No Surgical Hx Reported Additional Past Surgical History / Comment(s): [place] Teeth Extraction Past Anesthesia/Blood Transfusion Reactions: No Reported Reaction Past Psychological History: No Psychological Hx Reported Smoking Status: Never smoker Past Alcohol Use History: None Reported Past Drug Use History: None Reported - Past Family History Mother Family Medical History: Thyroid Disorder Additional Family Medical History / Comment(s): Hypothyroid Father Family Medical History: Diabetes Mellitus Additional Family Medical History / Comment(s): Type 1 Diabetes Medications and Allergies Home Medications Medication Instructions Recorded Confirmed Type Pnv No.95/Ferrous Fum/Folic AC 1 tab PO DAILY 01/05/18 09/02/22 History [ Multivitamin Tablet] Aspirin 81 mg PO DAILY 09/02/22 09/02/22 History Allergies Allergy/AdvReac Type Severity Reaction Status Date / Time No Known Allergies Allergy Verified 09/02/22 06:23 Exam Vital Signs Temp Pulse Resp BP 09/02/22 06:16 98.2 F 78 16 125/86 Intake and Output 09/01/22 09/02/22 09/02/22 22:59 06:59 14:59 Other: Weight 66.678 kg See dictation under HPI please Results Result Diagrams: 09/02/22 06:20 Abnormal Lab Results - Last 24 Hours (Table) 09/02/22 Range/Units 06:20 RBC 3.48 L (3.80-5.40) m/uL Hgb 10.2 L (11.4-16.0) gm/dL Hct 31.6 L (34.0-46.0) % Assessment and Plan Assessment: 39-5/7 weeks intrauterine , here for induction of labor, all signs reassuring. Positive group B strep cultures. Plan: Continue close maternal and surveillance. Oxytocin per hospital protocol. Antibiotics instituted. Analgesic options reviewed. Anticipate normal spontaneous vaginal delivery. Time with Patient: Less than 30
[2022-09-02] MEDS ORDERED: ZOLPIDEM 5 MG TAB PO PRN (11:15)
[2022-09-02] MEDS ORDERED: diphenhydrAMINE 25 MG CAP PO PRN (11:15)
[2022-09-02] MEDS ORDERED: LANOLIN CREAM 5 GM TUBE TOPICAL PRN (11:15)
[2022-09-02] MEDS ORDERED: diphenhydrAMINE 50 MG/ML 1 ML VIAL IVP PRN ×2 (11:15)
[2022-09-02] MEDS ORDERED: SIMETHICONE 80 MG CHEWABLE PO PRN (11:15)
[2022-09-02] MEDS ORDERED: diphenhydrAMINE ELIXIR 25 MG/10 ML CUP PO PRN (11:15)
[2022-09-02] MEDS ORDERED: ACETAMINOPHEN TAB 325 MG TAB PO PRN (11:15)
[2022-09-02] MEDS ORDERED: diphenhydrAMINE 50 MG CAP PO PRN (11:15)
[2022-09-02] MEDS ORDERED: HYDROCORTISONE 2.5% RECTAL CREAM 30 GM TUBE RECTAL PRN (11:15)
[2022-09-02] MEDS ORDERED: BENZOCAINE/MENTHOL SPRAY 1 GM/SPRAY AEROSOL TOPICAL PRN (11:15)
--- NOTE | 2022-09-02 11:16 | P.PROBDLV ---
Vaginal Delivery Note - . Vaginal Delivery Note: This is a 27-year-old female 5 para 20-2 EDC 09/04/2022 at 39-5/7 weeks' gestation who presented for induction with favorable multiparous cervix. Group B strep cultures positive, she did receive 2 doses of penicillin G while in labor. Please see my dictated history and physical for details. Oxytocin was started and titrated per hospital protocol. Analgesic options are reviewed, patient did receive nitrous gas at the bedside. She became completely dilated with a strong urge to push. Perineal body was prepped and draped in usual sterile fashion. With excellent maternal expulsive efforts and 2 pushes, infant's head delivered occiput anterior and he restituted accordingly. There was a nuchal cord 2 that was reduced on the perineal body. The left or anterior shoulder was easily delivered from underneath the pubic symphysis at which time the oropharynx, nasopharynx, and external nares were all bulb suctioned carefully. Patient was officially delivered of a liveborn male at 04/25/2001 hours. Umbilical cord was doubly clamped and ligated, he was handed to waiting nurses for evaluation where scores of 8 and 9 at one and 5 minutes respectively were given. Placenta delivered spontaneously, it was inspected and noted to be intact with trivascular cord at 04/25/2003 hours. Inspection of cervix, vagina, perineum, periurethral, and perirectal areas revealed no lacerations. Bleeding was initially slightly breast, Methergine was given IM 1 with excellent results. weighs 7 lbs. 0 oz. or 3175 g. Total estimated blood loss 250 mL's. All sponge needle and enhancement counts are correct. Patient is requesting circumcision for her son.
[2022-09-02] MEDS: IBUPROFEN 600 MG TAB PO SCH ×3 (11:26→23:15)
[2022-09-02] MEDS ORDERED: PENICILLIN G POTASSIUM 2,500,000 UNIT in DEXTROSE 5% IN WATER 100 ML IVPB SCH ×2 (12:00)
[2022-09-02] MEDS: SENNOSIDES-DOCUSATE SODIUM 1 EACH TAB PO SCH (20:09)
[2022-09-03] MEDS: IBUPROFEN 600 MG TAB PO SCH (04:48)
--- NOTE | 2022-09-03 07:57 | P.DS ---
Providers Date of admission: 09/02/22 06:06 Expected date of discharge: 09/03/22 Attending physician: Rachael June Primary care physician: Stated None Hospital Course: This is a 27-year-old female 5 para 20-2 EDC 09/04/2022 at 39-5/7 week gestation presented for induction with favorable multiparous cervix. Group B strep cultures positive, blood type A+, rubella status immune. Please see dictated history and physical for details. Artificial amniorrhexis revealed clear fluid. Analgesic options were discussed and patient did use. She went on to deliver a liveborn male infant with scores of 8 and 9 at one and 5 minutes respectively. There was a nuchal cord 2 that was reduced. Infant weighed 3175 g or 7 lbs. 0 oz. No perineal lacerations were encountered. Please see dictated delivery note for details. This 20 the patient is doing well. She is voiding, ambulating, passing flatus without difficulty. Vital signs are stable and she is afebrile. [place] is doing well. Circumcision will be performed this morning. Patient is being discharged home later today in excellent condition. She will follow-up with me in the office in 6 weeks. I have reminded her no intercourse, tampons or douching. She will use [id number] Aleve or Advil, or Motrin as needed she will call with any fevers shakes or chills, foul smelling or copious lochia, with the passage of large blood clots, with any pain not alleviated by [id number] products, or indeed with any concerns. Assessment: Doing well first day Plan - Discharge Summary Discharge Rx Participant: No New Discharge Prescriptions: No Action Pnv No.95/Ferrous Fum/Folic AC [ Multivitamin Tablet] 1 tab PO DAILY Aspirin 81 mg PO DAILY Discharge Medication List Pnv No.95/Ferrous Fum/Folic AC [ Multivitamin Tablet] 1 tab PO DAILY 01/05/18 [History] Aspirin 81 mg PO DAILY 09/02/22 [History] Follow up Appointment(s)/Referral(s): Rachael June MD [STAFF PHYSICIAN] - 6 Weeks
[2022-09-03 08:41] VITALS: BP 110/75; PULSE 86; RESP 15; TEMP 97.9
[2022-09-03] MEDS: SENNOSIDES-DOCUSATE SODIUM 1 EACH TAB PO SCH (09:31)
== END 2022-09-03 14:43 | disposition home or self-care (01) | DRG 807 ==
LOC: 4FBP 06:06
PROVIDERS: ADMIT Obstetrics & Gynecology; ATTEND Obstetrics & Gynecology
PROC: 3E0DXGC Introduction of Other Therapeutic Substance into Mouth and Pharynx, External Approach (ICD-10-PCS; principal; 2022-09-02)
PROC: 10907ZC Drainage of Amniotic Fluid, Therapeutic from Products of Conception, Via Natural or Artificial Opening (ICD-10-PCS; principal; 2022-09-02)
PROC: 10E0XZZ Delivery of Products of Conception, External Approach (ICD-10-PCS; principal; 2022-09-02)
DX: O69.81X0 Labor and delivery complicated by cord around neck, without compression, not applicable or unspecified (principal); Z37.0 Single live birth; O99.824 Streptococcus B carrier state complicating childbirth; Z3A.39 39 weeks gestation of pregnancy; Z79.82 Long term (current) use of aspirin; Z28.310 Unvaccinated for COVID-19; Z28.21 Immunization not carried out because of patient refusal
CPT/HCPCS: 85025; 86850; 86900; 86901